=== PATIENT | male | born 1975 | race Caucasian/White ===

== ENCOUNTER 2018-12-23 12:28 | Emergency (ER) | payer OTHER, SELFPAY ==
[2018-12-23 12:46] VITALS: BP 136/75; PULSE 72; RESP 18; TEMP 37.2; O2SAT 100
--- NOTE | 2018-12-23 13:45 | ED_ITS ---
HPI - Extremity Injury (Upper) <JAVIER Haley-BC - Last Filed: 12/23/18 16:29> General Chief Complaint: Extremity Injury, Upper Stated Complaint: CRUSHED FINGER,TURNING WHITE Time Seen by Provider: 12/23/18 13:27 Source: patient and RN notes reviewed Mode of arrival: ambulatory Limitations: no limitations History of Present Illness HPI narrative: The patient is a 43-year-old male former smoker with history of diverticulitis who presents with a chief complaint of a finger injury. He states that last Thursday, he got his finger stuck in gears and was seen at [facility] Emergency Department. He had an open fracture, and his fingernail was taken off of his left index finger. The patient was seen by his PCPs office and he was referred here because of his concern of his finger turning white. He denies any fevers nausea vomiting or diarrhea. He does note that he has been keeping his finger covered since Thursday. Related Data Home Medications Medication Instructions Recorded Confirmed cephalexin 500 mg capsule 500 mg PO TID 12/23/18 12/23/18 ibuprofen 1 dose PO PRN PRN 12/23/18 12/23/18 Previous Rx's Medication Instructions Recorded epinephrine 0.3 mg/0.3 mL 0.3 mg IM ONCE PRN #2 each 09/17/18 injection, auto-injector Allergies Allergy/AdvReac Type Severity Reaction Status Date / Time bee venom protein (honey bee) Allergy Severe Lip and Verified 12/23/18 11:20 tongue swelling, rash, shortness of breath. Review of Systems <JAVIER Haley-BC - Last Filed: 12/23/18 16:29> Review of Systems GENERAL: Denies chills, fatigue, malaise, fever, sweats. HEENT: Denies sinus pain, ear pain, sore throat, difficulty swallowing, dizziness. RESPIRATORY: Denies dyspnea, cough, wheezing, hemoptysis, sputum. CARDIOVASCULAR: Denies chest pain, palpitations, orthopnea, edema, GASTROINTESTINAL: Denies nausea, vomiting, abdominal pain, diarrhea, constipation, melena. : Denies dysuria, frequency, incontinence, hematuria, urinary retention. MUSCULOSKELETAL: See HPI SKIN: See HPI NEUROLOGIC: Denies weakness, headache, numbness, change in speech, confusion, seizures, incoordination. PSYCHIATRIC: No concerning psychosocial issues. 12 point review of systems is negative except for those stated above PFSH <RODRIGUE Haley - Last Filed: 12/23/18 16:29> Medical History Diverticular disease (Chronic ~2015) Shoulder pain (Chronic ~2016) Appendicitis (Resolved ~1991) Surgical History Anesthesia (Resolved) Fractures (Resolved ~1991) History of vasectomy (~07/2016) Status post appendectomy (~1991) Status post hernia repair (~1989) Family History (Updated 02/23/18 @ 21:30 by Sue Sullivan) Father Age: 75 Heart disease Grandfather Heart disease Hypertension Grandmother Diabetes mellitus Social History Smoking Status: Former smoker Family History Father Age: 75 Heart disease Grandfather Heart disease Hypertension Grandmother Diabetes mellitus Social History Smoking Status: Former smoker Exam <RODRIGUE Haley - Last Filed: 12/23/18 16:29> Narrative Exam Narrative: GENERAL: This is a well-nourished, well-developed patient, no acute distress HEAD: Atraumatic. Normocephalic. No temporal or scalp tenderness. EYES: Pupils equal round and reactive. Extraocular motions intact. No scleral icterus. No injection or drainage. NECK: Trachea midline. No JVD or lymphadenopathy. Supple, nontender, no meningeal signs. CARDIOVASCULAR: Regular rate and rhythm without murmurs, gallops, or rubs. RESPIRATORY: No cough. No increased respiratory effort. No accessory muscle use. EXTREMITIES: Left 2nd digit has nail removed, with Surgicel a Vaseline gauze at the hip overlying nail bed, extending over tip of finger. Sutures clean dry and intact. Left 2nd digit has good color, capillary refill less than 2 seconds. Warm to palpation. Positive radial pulse left hand. No extending erythema. No drainage noted. BACK: Nontender without deformity or crepitance. No flank tenderness. NEURO: AOx3. SKIN: See extremity exam. Initial Vital Signs Initial Vital Signs: Vital Signs Temperature 99.0 F 12/23/18 12:46 Pulse Rate 72 12/23/18 12:46 Respiratory Rate 18 12/23/18 12:46 Blood Pressure 136/75 12/23/18 12:46 Pulse Oximetry 100 12/23/18 12:46 <Seth Dial DO - Last Filed: 12/23/18 16:35> Initial Vital Signs Initial Vital Signs: Vital Signs Temperature 99.0 F 12/23/18 12:46 Pulse Rate 72 12/23/18 12:46 Respiratory Rate 18 12/23/18 12:46 Blood Pressure 136/75 12/23/18 12:46 Pulse Oximetry 100 12/23/18 12:46 Course <RODRIGUE Haley - Last Filed: 12/23/18 16:29> Vital Signs - 8 hr 12/23/18 12:46 12/23/18 15:27 Temperature 99.0 F Pulse Rate 72 57 L Respiratory Rate 18 16 Blood Pressure 136/75 120/74 Pulse Oximetry 100 <Seth Dial DO - Last Filed: 12/23/18 16:35> Vital Signs - 8 hr 12/23/18 12:46 12/23/18 15:27 Temperature 99.0 F Pulse Rate 72 57 L Respiratory Rate 18 16 Blood Pressure 136/75 120/74 Pulse Oximetry 100 MDM - Extremity Injury (Upper) <RODRIGUE Haley - Last Filed: 12/23/18 16:29> MDM Narrative Medical decision making narrative: The patient is a 43-year-old male who presents with a chief complaint of a previous crush injury to his left 2nd digit. He is on Keflex at this point time. He was seen and evaluated [place] after the immediate injury. He presents from his PCPs office for concern of a w seda finger. However he has had his finger dressed 24 hours a day since the injury on Thursday. After removing the dressing for approximately 1 hour, his finger is warm. Capillary refill is intact. Color is appropriate for ethnicity inconsistent with rest of his hand. I discussed at length follow up with his PCP as well as Orthopedics as discussed. He states understanding. He thinks this might be related to his dressing being on too tight overnight. He appears to be neurovascularly intact at this point time. I discussed monitoring for weight finger, decreased circulation, and being evaluated for any acute concerns. Discussed follow-up. Patient states understanding and has no questions or concerns upon discharge Discharge Plan Departure Patient Disposition: Home Clinical Impression: Encounter for evaluation of wound Discharge Date/Time: 12/23/18 15:26 Interventions: ED Discharge Assessment Last Done: 12/23/18 15:27 Instructions: Minor Wounds (Alternative Therapy), Skin Wound Activity Restrictions/Additional Instructions: Your wound looks good today. Please take your antibiotics as previously prescribed. I believe the discoloration on the tip of her finger was related to your dressing. Please make sure it is not too tight and I was suggest not having it covered 24 hours a day for several days in a row. Please monitor for weight finger, cold finger and signs of decreased circulation. Please come back to the emergency department for any acute conc erns. Please follow up with your PCP as well as Orthopedics as previously arranged. Prescriptions: No Action epinephrine 0.3 mg/0.3 mL auto-injector 0.3 mg IM ONCE PRN (Reason: anaphylaxis) Qty: 2 RF: 3 cephalexin 500 mg capsule 500 mg PO TID RF: 0 ibuprofen 200 mg Tablet 1 dose PO PRN PRN (Reason: pain) RF: 0 Referrals: Radha West ARNP [Primary Care Provider] - <Seth Dial DO - Last Filed: 12/23/18 16:35> Cosign ED Attending Marie Attestation: I was available for consultation during this patient's emergency department encounter
--- NOTE | 2018-12-23 13:49 | PC.NURSE ---
pt reports injury happened on Thursday, [facility] 2 [facility] intact, appears nail is removed, and Vaseline gauze to site.
[2018-12-23 15:27] VITALS: BP 120/74; PULSE 57; RESP 16
== END 2018-12-23 15:26 | disposition home or self-care (01) ==
PROVIDERS: Emergency Provider Nurse Practitioner Family; PCP Nurse Practitioner
DX: S67.191A Crushing injury of left index finger, initial encounter (principal); Z51.89 Encounter for other specified aftercare
CPT/HCPCS: 99282

== ENCOUNTER → 2020-02-13 14:38 | Outpatient (CLI) | payer OTHER, SELFPAY ==
--- NOTE | 2020-02-13 14:39 | DI.RAD.S_ITS ---
PROCEDURE: XR KNEE RT 3V INDICATIONS: RIGHT knee pain and swelling, no recent injury TECHNIQUE: 3 views of the knee were acquired. COMPARISON: None. FINDINGS: Bones: Patient is status post internal fixation of patella with healing fracture involving superior medial aspect of patella. No gross hardware loosening or failure. No acute fractures or dislocations. No suspicious bony lesions. Soft tissues: No joint effusion. No suspicious soft tissue calcifications. IMPRESSION: Post fixation changes in patella. No gross hardware loosening or failure. Healing patellar fracture. No other fracture or dislocation. Mild tricompartmental osteoarthritis. Dictated by: Luis Fernando Stern M.D. on 02/13/2020 at 15:36 Approved by: Luis Fernando Stern M.D. on 02/13/2020 at 15:37
== END ==
PROVIDERS: PCP Nurse Practitioner; Referring Provider Registered Nurse Diabetes Educator; Visit Provider Registered Nurse Diabetes Educator
DX: M25.561 Pain in right knee (principal); S82.001D Unspecified fracture of right patella, subsequent encounter for closed fracture with routine healing; M17.11 Unilateral primary osteoarthritis, right knee; X58.XXXD Exposure to other specified factors, subsequent encounter
CPT/HCPCS: 73562

== ENCOUNTER 2020-04-23 09:45 | Outpatient (RCR) | payer OTHER, SELFPAY ==
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
--- NOTE | 2020-03-13 15:56 | PT.OPPOC ---
Physical, Occupational & Speech Therapy At [facility] Current Diagnoses Pain in unspecified knee (03/13/20) Visit Care Team Role Provider Type ALMA Chan Family Provider Advanced Budget Clerk Primary Care Provider Specialty: Family Practice Address: [address] [place] [address], [id number] Email: [email or web address] ALMA Pérez Attending Provider Advanced Budget Clerk Referring Provider Specialty: Medical Address: [address] [place] [address], [id number] Email: [email or web address] Plan Of Care PT-OP-T Assessment and Plan Start: 03/13/20 07:24 Freq: Status: Active Protocol: Document 03/13/20 10:34 MB (Rec: 03/13/20 15:55 MB [id number]) Physical Therapy Assessment Rehab Potential Rehabilitation Potential Fair Evaluation Complexity Number of Personal Factors/Comorbidities 1-2 Number of Body Systems Impaired 1-2 Clinical Presentation at Evaluation Evolving Impairments Impairments Activity Tolerance,Balance, Edema,Gait,Integument,Pain, Posture,ROM,Soft Tissue Mobility,Strength Other Impairments Pt did not have acute changes on x-ray but has not yet had a MRI so unknown if he has anatomical changes from recent injury Goals 5 Halfway Goal (LTG) Pt will gait train at least 1500 feet without AD in 6 minutes to prepare for community ambulation and return to sport by 05/10/2020. LTG Duration 8 weeks 4 Carpenter Repairer Goal (LTG) Pt will perform progressive HEP with I to improve range of motion, flexibility strength, balance and gait by 2019. LTG Duration 8 weeks 3 Carpenter Repairer Goal (LTG) Pt will present with improved right knee flexion and extension strength to 5/5 to prepare for return to mountain biking by 05/10/2020. LTG Duration 8 weeks 2 Carpenter Repairer Goal (LTG) Pt will present with improved right knee AROM to at least 2- 125 deg to improve ability to cycle by 05/10/2020. LTG Duration 8 weeks 1 Carpenter Repairer Goal (LTG) Pt will present with improved LEF score to reflect no more than 20% impairment to improve ability to work and perform community ambulation and exercise by 05/10/2020. LTG Duration 8 weeks Assessment Summary Assessment Pt is a 44 y/o male presenting with history of right patella fracture and two surgeries. He had recent injury while mountain biking and presents with right knee edema, antalgic gait with decreased right knee flexion and extension, decreased right heel strike and increased hip hike with gait. He presents with tenderness to touch and with passive joint valgus and varus in loose pack position. He has weakness and decreased AROM. He will benefit from PT to improve range, flexibility, strength, balance and gait. He will benefit from manual intervention to improve fascial tension. He has not had a MRI and may have an internal derangement not found by x-ray and this could be a barrier to PT. Physical Therapy Plan Frequency and Duration Frequency of Treatment 2x/Week Duration of Treatment 8 weeks Plan of Care Start Date 03/13/20 Plan of Care End Date 05/10/20 Therapeutic Interventions Therapeutic Interventions Balance Training,Gait Training ,Home Exercise Program,Joint Mobilizations,Manual Therapy, Neuromuscular Re-education, Patient/Caregiver Education, Self-Care/Home Management, Sensory Integration,Soft Tissue Mobilization,Taping, Therapeutic Activities, Therapeutic Exercises Modalities Cold Pack/Ice Massage,Electric Stimulation,Hot Packs, Ultrasound Next Visit Focus/Plan Next Note Type Treatment Note Next Visit Plan Review exercises and progress, consider taping and other manual work Plan of Care Dates Plan of Care Start Date 03/13/20 Plan of Care End Date 05/10/20 Electronically Signed by: Grace Alicia, PT 03/13/20 [id number] Please Sign and Return: I have reviewed this Plan of Care and certify that the skilled therapy services above are required to meet the patient?s needs. Physician Signature Date Printed Name and Credentials Clinical Instructor Signature Printed Name and Credentials
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
== END 2020-04-27 14:52 ==
LOC: PHYS 09:45
PROVIDERS: Family Provider Nurse Practitioner; PCP Nurse Practitioner; Referring Provider Registered Nurse Diabetes Educator; Visit Provider Registered Nurse Diabetes Educator
DX: M25.569 Pain in unspecified knee (principal)
CPT/HCPCS: 97110; 97112; 97116; 97140; 97161

== ENCOUNTER → 2020-05-28 12:15 | Outpatient (CLI) | payer OTHER, SELFPAY ==
--- NOTE | 2020-05-28 12:16 | DI.RAD.S_ITS ---
PROCEDURE: XR LUMBAR SPINE 2-3V INDICATIONS: low back pain TECHNIQUE: 3 views of the lumbar spine were acquired. COMPARISON: None. FINDINGS: Bones: 5 [id number] vertebrae are present. There are degenerative changes at multiple levels, most prominent at the anterior superior L5 vertebral body. No vertebral body compression fractures. No suspicious bony lesions. Soft tissues: Overlying bowel gas pattern is normal. No suspicious soft tissue calcifications. IMPRESSION: 1. Multilevel degenerative changes. 2. No disc space narrowing to suggest significant disc disease. Dictated by: Atul Lockhart M.D. on 05/28/2020 at 12:44 Approved by: Autl Lockhart M.D. on 05/28/2020 at 12:50
== END ==
PROVIDERS: Family Provider Nurse Practitioner; PCP Nurse Practitioner; Referring Provider Nurse Practitioner; Visit Provider Nurse Practitioner
DX: M54.5 Low back pain (principal); M47.816 Spondylosis without myelopathy or radiculopathy, lumbar region
CPT/HCPCS: 72100

== ENCOUNTER → 2021-02-22 08:07 | Outpatient (CLI) | payer OTHER, SELFPAY ==
[2021-02-22 09:03] LABS: Add Manual Diff / Slide Review NO; Basophils Absolute Auto 0 /uL (0-100); Basophils Percent Auto 0.3 % (0-2); Eosinophils Absolute Auto 100 /uL (0-450); Eosinophils Percent Auto 1.9 % (2-4); Hematocrit 43.6 % (41-53); Hemoglobin 14.3 g/dL (13.5-17.5); Lymphocytes Absolute Auto 1800 /uL (1100-4500); Lymphocytes Percent Auto 44.8 % (25-40); Mean Corpuscular HGB Conc 32.9 % (30-36); Mean Corpuscular Hemoglobin 30.3 PG (26-34); Mean Corpuscular Volume 91.9 fL (80-100); Monocytes Absolute Auto 400 /uL (0-900); Monocytes Percent Auto 9.7 % (3-14); Neutrophils Absolute Auto 1800 /uL (1500-7000); Neutrophils Percent Auto 43.3 % (50-75); Platelet Count 210 X10^3/uL (150-400); Red Blood Cell Count 4.74 X10^6/uL (4.5-5.9); Red Cell Distribution Width 12.9 % (11.6-14.8); White Blood Cell Count 4.1 X10^3/uL (4.5-11.0)
[2021-02-22 10:11] LABS: Free T3, Triiodothyronine Free 4.75 pg/mL (2.77-5.27)
[2021-02-22 10:21] LABS: Alanine Aminotransferase 30 IU/L (<50); Albumin 4.5 g/dL (3.5-5.0); Albumin Globulin Ratio 1.6 (1.0-2.8); Alkaline Phosphatase 56 U/L (38-126); Aspartate Aminotransferase 27 IU/L (17-59); BUN Creatinine Ratio 24.6 (6-22); Bilirubin Total 0.5 mg/dL (0.2-1.3); Blood Urea Nitrogen 17 mg/dL (9-20); Calcium 9.7 mg/dL (8.4-10.2); Carbon Dioxide 33 mmol/L (22-32); Chloride 99 mmol/L (98-107); Cholesterol 214 mg/dL (140-199); Estimated Glomerular Filt Rate > 60.0 mL/min (>60); Globulin 2.9 g/dL (1.7-4.1); Glucose 96 mg/dL (70-100); HDL Cholesterol 63 mg/dL (40-60); HEMOLYSIS < 15 (0-50); LDL Cholesterol Calculated 125 mg/dL (<100); Potassium 4.1 mmol/L (3.4-5.1); Sodium 139 mmol/L (137-145); Total Protein 7.4 g/dL (6.3-8.2); Triglycerides 130 mg/dL (35-150)
[2021-02-22 10:25] LABS: Thyroid Stimulating Hormone 1.86 uIU/mL (0.47-4.68)
[2021-02-22 14:04] LABS: Free T4, Direct Thyroxine 0.96 ng/dL (0.78-2.19)
== END ==
PROVIDERS: Family Provider Nurse Practitioner; PCP Nurse Practitioner; Referring Provider Nurse Practitioner; Visit Provider Nurse Practitioner
DX: Z00.00 Encounter for general adult medical examination without abnormal findings (principal)
CPT/HCPCS: 36415; 80053; 80061; 84439; 84443; 84481; 85025

== ENCOUNTER → 2021-03-06 09:32 | Outpatient (CLI) | payer OTHER, SELFPAY ==
[2021-03-06 12:53] LABS: COVID19 -Nasal RAPID Negative (Negative)
== END ==
PROVIDERS: Family Provider Nurse Practitioner; PCP Nurse Practitioner; Visit Provider Nurse Practitioner Family
DX: Z20.822 Contact with and (suspected) exposure to COVID-19 (principal)
CPT/HCPCS: 87635

== ENCOUNTER → 2021-03-29 14:43 | Outpatient (CLI) | payer OTHER, SELFPAY ==
[2021-03-29] MEDS: COVID-19 VACC #3, MRNA(MOD) 50 MCG/0.25 ML VIAL IM (14:46)
== END ==
PROVIDERS: Family Provider Nurse Practitioner; PCP Nurse Practitioner; Visit Provider Internal Medicine
DX: Z23 Encounter for immunization (principal)
CPT/HCPCS: 0013A; 91301